=== PATIENT | female | born 1945 | race Caucasian/White ===

== ENCOUNTER → 2017-12-14 | Outpatient (CLI) | payer MEDICARE, OTHER | LOC: M.LAB 06:22 | DX: Z01.812 Encounter for preprocedural laboratory examination (principal) ==

== ENCOUNTER → 2018-06-14 | Outpatient (CLI) | payer OTHER ==
--- NOTE | 2018-06-14 16:28 | CARDNUC ---
[place] [address] CARDIAC NUCLEAR IMAGING REPORT Name: XOCHILT DRISCOLL Room: [facility]#: [id number] Admission: 06/14/18 Attend Phys: Vishal Jeffers, Discharge: Date of : 47 Date of Service: 06/14/18 1628 Report #: [id number] THIS REPORT FOR: //name// APPROVED REPORT Imaging Protocol: Stress Tc-99m/Rest Tc-99m 1 day Study performed: 06/14/2018 09:00:00 Indication: Chest pain, Increased fatigue, decreased energy/stamina. Patient Location: Out-Patient Stress Tech: Ambika Licona Stress Nurse: Anila Beasley RN Ht: 5 ft 4 in Wt: 138 lbs BSA: 1.67 m2 BMI: 23.68 Medical History Medical History: Angina, Mitral Valve prolapse, decreased energy/stamina, increased fatigue, Diabetes, Valvular heart disease, Weakness. Medications: Maxzide, NTG. Allergies: Alendronate, EES, Morphine. Cardiac Risk Factors: Age, FHX of CAD, HTN, Hyperlipidemia, Mitral Valve Prolapse. Previous Cardiac Procedures: None Pretest Chest Pain Characteristics: No chest pain Exercise History: Indeterminate Physical Disabilities: Increased fatigue, decreased energy, Mitral Valve proplapse. Meds Held (24 hrs): NTG. Resting Data Rest SPECT myocardial perfusion imaging was performed in supine position 30 minutes following the intravenous injection of 10.4 mCi of Tc-99m Sestamibi. Time of rest injection: 09:15 The images were gated to evaluate regional wall motion and calculate left ventricular ejection fraction. Administration Route: IV Administration Site: Left AC Pharmacologic Stress Pharmacologic stress test was performed by injecting Regadenoson 0.4 mg IV push over 10-15 seconds immediately [place] [address] CARDIAC NUCLEAR IMAGING REPORT Name: XOCHILT DRISCOLL Room: [facility]#: [id number] Admission: 06/14/18 Attend Phys: Vishal Jeffers, Discharge: Date of : 47 Date of Service: 06/14/18 1628 Report #: [id number] injection of 30.9 mCi of Tc-99m Sestamibi. Time of stress injection: 10:50 Administration Route: IV Administration Site: Left AC Heart Rate at time of stress injection: 148 bpm. Gated Stress SPECT was performed 45 minutes after stress injection. The images were gated to evaluate regional wall motion and calculate left ventricular ejection fraction. Prone imaging was performed. Stress Test Details Stress Test: Pharmacologic stress was paired with low level exercise. Reason for pharmacologic stress test: Increased fatigue, decreased energy/stamina, Mitral Valve Prolapse.. HR Max Heart Rate (APMHR): 148 bpm Resting HR: 54 bpm Target HR (85% APMHR): 125 bpm Max HR Achieved: 150 bpm % of APMHR: 101 Recovery HR: 94 bpm HR response to stress: Normal HR response to stress BP Resting BP: 136/89 mmHg Max BP: 154/83 mmHg Recovery BP: 140/97 mmHg BP response to stress: Normal blood pressure response to stress. ECG Resting ECG: Sinus Rhythm Stress ECG: Sinus Rhythm ST Change: none Arrhythmia: none Recovery ECG: none Clinical Reason for Termination: Completed protocol Stress Symptoms: None Exercise duration: 4 min 00 sec Exercise capacity: 2.30 METs Nurse Comments 73 year old female presented for Lexiscan stress test. Patient c/o recent increased fatigue and lowered stamina/[place] [address] CARDIAC NUCLEAR IMAGING REPORT Name: XOCHILT DRISCOLL Room: [facility]#: [id number] Admission: 06/14/18 Attend Phys: Vishal Jeffers, Discharge: Date of : 47 Date of Service: 06/14/18 1628 Report #: [id number] with CP. Patient able to walk a slow, flat treadmill for walking lexiscan. Patient tolerated test well. Recovery unremarkable with PO caffeine. Patient escorted by staff to Nuclear Medicine for images. Patient stable with no complaints at that time. Stress ECG Conclusion none Study Quality Study: Good Study Data At rest, the left ventricular ejection fraction was 72%.. Post stress, the left ventricular ejection was 79%.. SSS: 1 SRS: 0 SDS: 1 TID = 0.82. Perfusion Review of rest data reveals normal perfusion, without perfusion defects.Imaging obtained following vasodilator stress demonstrate a similar, uniform uptake of tracer without defects. Prone imaging was normal. LVEDV is normal.No segental wall motion abnormality seen. Wall Motion Normal wall motion all segments Nuclear Conclusion ECG Findings: negative for ischemia Clinical Findings: negative for ischemia Nuclear Findings: negative for ischemia Exercise Capacity: not assessed Left Ventricular Function: normal Risk Study: low Negative perfusion nuclear stress test for ischemia or infarct. <Conclusion> none <ELECTRONICALLY SIGNED> By: Vishal Jeffers MD, FACC 06/14/18 1628 1628 1628 Vishal Jeffers MD, FACC /INF
== END ==
LOC: M.NUC 08:49 → M.CRD 06-18 08:00 → M.NUC 06-18 08:00
DX: R07.89 Other chest pain (principal); E78.00 Pure hypercholesterolemia, unspecified; K21.0 Gastro-esophageal reflux disease with esophagitis; E11.9 Type 2 diabetes mellitus without complications; I34.1 Nonrheumatic mitral (valve) prolapse; Z88.5 Allergy status to narcotic agent; Z88.1 Allergy status to other antibiotic agents; Z88.8 Allergy status to other drugs, medicaments and biological substances; Z80.3 Family history of malignant neoplasm of breast; Z80.0 Family history of malignant neoplasm of digestive organs